=== PATIENT | female | born 1985 ===

== ENCOUNTER 2023-08-08 19:29 | Emergency (ER) | payer OTHER ==
[2023-08-08 19:52] VITALS: TEMP 99.3
[2023-08-08] MEDS ORDERED: TORAdol 30 mg Injection IV ONE (19:52)
[2023-08-08] MEDS ORDERED: Sodium Chloride 0.9% 1000 ML 1,000 ML IV STA (19:52)
[2023-08-08] MEDS ORDERED: Sodium Chloride 0.9% 1000 ML 1,000 ML ONE (19:57)
[2023-08-08] MEDS ORDERED: TORAdol 30 mg Injection ONE (19:57)
--- NOTE | 2023-08-08 20:01 | ERPHSYRPT ---
- History of Present Illness Time Seen by Provider: 08/08/23 19:57 Source: patient Exam Limitations: no limitations Patient Subjective Stated Complaint: left sided abd pain x few days. emesis onset today. multiple episodes emesis today. Triage Nursing Assessment: pt to ED c/o abd pain and NVD. 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 seen at [facility] yesterday, started on abx for ear infection. swabbed for flu and COVID, both negative. decreased oral intake last few days. multiple episodes emesis and diarrhea daily Physician History: Patient is a 38-year-old female BMI 49.6 works at a daycare presents to our ED for evaluation of left-sided flank pain x3 days. Nausea vomiting x1 day. Patient went to a [facility] yesterday. She was feeling unwell. Patient tested negative for COVID flu influenza. However she was diagnosed with an ear infection. Patient currently on amoxicillin. Symptoms are mild to moderate in intensity. No specific worsening or improving factors. No known sick contacts. Patient is otherwise healthy. She voices no other complaints or concerns at this time. Portions of this note were created with voice recognition technology. There may be grammatical, spelling, punctuation or sound alike errors Timing/Duration: day(s) (3 days) Severity: moderate Modifying Factors: Improves With: nothing Associated Symptoms: denies symptoms Allergies/Adverse Reactions: No Known Drug Allergies Allergy (Unverified 08/08/23 19:36) Home Medications: Levothyroxine Sodium 50 Mcg [Synthroid 50 Mcg] 50 mcg PO DAILY 08/08/23 [History] Lisinopril 20 mg [Zestril 20 MG] 20 mg PO DAILY 08/08/23 [History] Tirzepatide [Mounjaro] 12.5 mg SQ DAILY 08/08/23 [History] Hx Tetanus, Diphtheria Vaccination/Date Given: Yes Hx Influenza Vaccination/Date Given: Yes Travel Risk - International Travel Have you traveled outside of the country in past 3 weeks: No - Coronavirus Screening Are you exhibiting any of the following symptoms?: Yes Symptoms: Fever, Cough: New Onset, Shortness of Breath, Vomiting/Diarrhea, Headaches/Body Aches/Fatigue Close contact with a COVID-19 positive Pt in past 14-21 Days: No - Vaccine Status Have you recieved a Covid-19 vaccination: Yes Body Worker: Moderna - Vaccination Dates Date of 2cond Vaccination (if applicable): 2019 - Review of Systems Constitutional: No Symptoms, No Fever, No Chills Eyes: No Symptoms Ears, Nose, & Throat: No Symptoms Respiratory: No Symptoms, No Cough, No Dyspnea Cardiac: No Symptoms, No Chest Pain, No Edema, No Syncope Abdominal/Gastrointestinal: No Symptoms, No Abdominal Pain, No Nausea, No Vomiting, No Diarrhea Genitourinary Symptoms: No Symptoms, No Dysuria Musculoskeletal: No Symptoms, No Back Pain, No Neck Pain Skin: No Symptoms, No Rash Neurological: No Symptoms, No Dizziness, No Focal Weakness, No Sensory Changes Psychological: No Symptoms Endocrine: No Symptoms Hematologic/Lymphatic: No Symptoms Immunological/Allergic: No Symptoms All Other Systems: Reviewed and Negative - Past Medical History Pertinent Past Medical History: Yes Neurological History: No Pertinent History ENT History: No Pertinent History Cardiac History: Hypertension Respiratory History: No Pertinent History Endocrine Medical History: Other Musculoskeletal History: No Pertinent History GI Medical History: No Pertinent History History: No Pertinent History Psycho-Social History: No Pertinent History Female Reproductive Disorders: No Pertinent History Other Medical History: hypothyroidism - Past Surgical History Past Surgical History: Yes Gastrointestinal: Cholecystectomy Female Surgical History: Hysterectomy, Dilation & Curettage, Section Other Surgical History: D&C x4 - Social History Smoking Status: Never smoker Exposure to second hand smoke: No Drug Use: none Patient Lives Alone: No ( and children) - Female History Hx Now: No (hysterectomy) - Nursing Vital Signs Nursing Vital Signs: Initial Vital Signs Temperature 99.3 F 08/08/23 19:38 Pulse Rate 117 H 08/08/23 19:38 Respiratory Rate 20 08/08/23 19:38 Blood Pressure 119/68 08/08/23 19:38 O2 Sat by Pulse Oximetry 98 08/08/23 19:38 Pain Scale Pain Intensity 4 - Physical Exam General Appearance: no apparent distress, alert, obese Eye Exam: PERRL/EOMI, eyes nml inspection Ears, Nose, Throat Exam: normal ENT inspection, TMs normal, pharynx normal, moist mucous membranes Neck Exam: normal inspection, non-tender, supple, full range of motion Respiratory Exam: normal breath sounds, lungs clear, airway intact, No respiratory distress Cardiovascular Exam: regular rate/rhythm, normal heart sounds, normal peripheral pulses Gastrointestinal/Abdomen Exam: soft, normal bowel sounds, tenderness (Tenderness palpation left flank.), No mass Back Exam: normal inspection, normal range of motion, No CVA tenderness, No vertebral tenderness Extremity Exam: normal inspection, normal range of motion, pelvis stable Neurologic Exam: alert, oriented x 3, cooperative, normal mood/affect, nml cerebellar function, nml station & gait, sensation nml, No motor deficits Skin Exam: normal color, warm, dry, No rash Lymphatic Exam: No adenopathy SpO2 Interpretation: normal SpO2: 98 O2 Delivery: Room Air - Course Nursing assessment & vital signs reviewed: Yes - CT Exams Abdomen/Pelvis CT Interpretation: Tele-radiologist Report (No calm 6. Fatty liver, 15 cm splenomegaly, mild colonic diarrhea, remaining abdomen pelvis negative) Ordered Tests: Active Orders 24 hr Category Date Time Status IV Insertion STAT Care 08/08/23 19:52 Active ABDOMEN AND PELVIS W/0 CONTRAS [CT] Stat Exams 08/08/23 19:53 Taken CBC W DIFF Stat Lab 08/08/23 19:55 Completed CMP Stat Lab 08/08/23 19:55 Completed HCG QUALITATIVE, URINE Stat Lab 08/08/23 Ordered LIPASE Stat Lab 08/08/23 19:55 Completed TROPONIN Q4H Lab 08/08/23 19:55 Completed TROPONIN Q4H Lab 08/09/23 00:00 Ordered TROPONIN Q4H Lab 08/09/23 04:00 Ordered UA W/RFX UR CULTURE Stat Lab 08/08/23 19:53 Ordered Medication Summary Discontinued Medications Generic Name Dose Route Start Last Admin Trade Name Tylerq PRN Reason Stop Dose Admin Sodium Chloride 1,000 mls @ 999 mls/hr 08/08/23 19:52 08/08/23 21:51 Sodium Chloride 0.9% 1000 Ml IV 08/08/23 20:52 Infused .Q1H1M STA Infusion Sodium Chloride Confirm 08/08/23 19:57 Sodium Chloride 0.9% 1000 Ml Administered 08/08/23 19:58 Dose 1,000 mls @ ud .ROUTE .STK-MED ONE Ketorolac Tromethamine 30 mg 08/08/23 19:52 08/08/23 20:00 Ketorolac Tromethamine 30 Mg/Ml Inj IV 08/08/23 19:53 30 mg STAT ONE Administration Ketorolac Tromethamine Confirm 08/08/23 19:57 Ketorolac Tromethamine 30 Mg/Ml Inj Administered 08/08/23 19:58 Dose 30 mg .ROUTE .K-MED ONE Lab/Rad Data: Laboratory Result Diagrams 08/08/23 19:55 08/08/23 19:55 Laboratory Results 08/08/23 08/08/23 08/08/23 Range/Units 19:55 19:55 19:55 WBC 8.7 (4.0-10.5) x10^3/uL RBC 5.53 H (4.1-5.4) x10^6/uL Hgb 14.5 (12.0-16.0) g/dL Hct 43.6 (35-47) % MCV 78.8 (78-100) fL MCH 26.2 (26-32) pg MCHC 33.3 (32-36) g/dL RDW 15.2 H (11.5-14.0) % Plt Count 286 (150-450) x10^3/uL MPV 9.4 (7.5-11.0) fL Gran % 79.9 H (36.0-66.0) % Immature Gran % (Auto) 0.3 (0.00-0.4) % Nucleat RBC Rel Count 0.0 (0.00-0.1) % Eos # (Auto) 0 (0-0.5) x10^3/uL Immature Gran # (Auto) 0.03 (0.00-0.03) x10^3u/L Absolute Lymphs (auto) 1.12 (1.0-4.6) x10^3/uL Absolute Monos (auto) 0.58 (0.0-1.3) x10^3/uL Absolute Nucleated RBC 0.00 (0.00-0.01) x10^3u/L Lymphocytes % 12.9 L (24.0-44.0) % Monocytes % 6.7 (0.0-12.0) % Eosinophils % 0.0 (0.00-5.0) % Basophils % 0.2 (0.0-0.4) % Absolute Granulocytes 6.96 H (1.4-6.9) x10^3/uL Basophils # 0.02 (0-0.4) x10^3/uL Sodium 136 L (137-145) mmol/L Potassium 3.5 (3.5-5.1) mmol/L Chloride 102 (98-107) mmol/L Carbon Dioxide 21 L (22-30) mmol/L Anion Gap 15.5 H (5-15) MEQ/L BUN 12 (7-17) mg/dL Creatinine 0.93 (0.52-1.04) mg/dL Estimated GFR 80.2 ML/MIN Glucose 104 (74-106) mg/dL Calcium 8.8 (8.4-10.2) mg/dL Total Bilirubin 0.90 (0.2-1.3) mg/dL AST 38 H (14-36) U/L ALT 32 (0-35) U/L Alkaline Phosphatase 87 (38-126) U/L Troponin I < 0.012 (0.000-0.034) ng/mL Serum Total Protein 8.4 H (6.3-8.2) g/dL Albumin 4.7 (3.5-5.0) g/dL Lipase 52 (23-300) U/L - Progress Progress: improved Progress Note: Patient is a 38-year-old female presents to our ED for evaluation of pain to her left flank. CT abdomen pelvis reveals a fatty liver. Enlarged spleen and diarrhea observed in her colon. CBC essentially nonremarkable. CMP nonremarkable. Lipase negative troponin negative. Patient received Toradol and normal saline. Patient feels well. No complaints. Patient has not urinated. However patient states he is ready for discharge. Patient to follow-up with her primary care doctor within 48 hours for reevaluation. She can provide a urine sample to her primary care doctor they can run urinalysis on an outpatient basis. Portions of this note were created with voice recognition technology. There may be grammatical, spelling, punctuation or sound alike errors Complexity of problems addressed is moderate acute complicated No critical care time Complex of data reviewed and analyzed is moderate. Test ordered test reviewed. Results analyzed and clinically correlated with history and physical examination. Risk of complication and a risk morbidity/mortality of patient management is moderate. A prescription for Toradol was forwarded to patient's pharmacy. Vital stable. Time spent to discharge patient is approximately 15 minutes. Plan of care established for shared decision making. No social determinants of health present impede follow-up. Portions of this note were created with voice recognition technology. There may be grammatical, spelling, punctuation or sound alike errors 08/08/23 21:55 Counseled pt/family regarding: lab results, diagnosis, need for follow-up, rad results - Departure Departure Disposition: Home Clinical Impression: Fatty liver, Splenomegaly, Colonic diarrhea, Abdominal pain Condition: Stable Critical Care Time: No Referrals: ANTIONE CORRAL, [facility] [Primary Care Provider] - Follow up/PCP as directed Additional Instructions: Discharge/Care Plan SANTHOSH CAZARES was seen on 08/08/23 in the Emergency Room. The patient was counseled regarding Diagnosis,Lab results, Imaging studies, need for follow up and when to return to the Emergency Room. Prescriptions given: Discharge Note I have spoken with the patient and/or caregivers. I have explained the patient's condition, diagnosis and treatment plan based on the information available to me at this time. I have answered the patient's and/or caregiver's questions and addressed any concerns. The patient and/or caregivers have as good understanding of the patient's diagnosis, condition and treatment plan as can be expected at this point. The vital signs have been stable. The patient's condition is stable and appropriate for discharge from the emergency department. The patient will pursue further outpatient evaluation with the primary care physician or other designated or consulting physician as outlined in the discharge instructions. The patient and/or caregivers are agreeable to this plan of care and follow-up instructions have been explained in detail. The patient and/or caregivers have received these instruction. The patient/and or caregivers are aware that any significant change in condition or worsening of symptoms should prompt an immediate return to this or the closest emergency department or call 911.
[2023-08-08 20:07] LABS: Absolute Neutrophil Ct (ANC) 6.96 x10^3/uL (1.4-6.9); BASOPHIL % 0.2 % (0.0-0.4); Basophil (Absolute #) 0.02 x10^3/uL (0-0.4); Eosinophil (Absolute #) 0 x10^3/uL (0-0.5); Hematocrit 43.6 % (35-47); Hemoglobin 14.5 g/dL (12.0-16.0); IMMATURE GRAN # 0.03 x10^3u/L (0.00-0.03); IMMATURE GRAN % 0.3 % (0.00-0.4); Lymphocyte (Absolute #) 1.12 x10^3/uL (1.0-4.6); Lymphocytes % 12.9 % (24.0-44.0); Mean Cell Volume 78.8 fL (78-100); Mean Corpuscular Hemoglobin 26.2 pg (26-32); Mean Corpuscular Hgb Concent. 33.3 g/dL (32-36); Mean Platelet Volume 9.4 fL (7.5-11.0); Monocyte (Absolute #) 0.58 x10^3/uL (0.0-1.3); Monocytes % 6.7 % (0.0-12.0); Neutrophil % 79.9 % (36.0-66.0); Platelet Count 286 x10^3/uL (150-450); Red Blood Count 5.53 x10^6/uL (4.1-5.4); Red Cell Distribution Width 15.2 % (11.5-14.0); White Blood Count 8.7 x10^3/uL (4.0-10.5)
[2023-08-08 20:20] LABS: ALBUMIN 4.7 g/dL (3.5-5.0); ANION GAP 15.5 MEQ/L (5-15); BILIRUBIN,TOTAL 0.9 mg/dL (0.2-1.3); Calcium 8.8 mg/dL (8.4-10.2); Creatinine 1 0.93 mg/dL (0.52-1.04); EST GLOMERULAR FILTRATION RATE 80.2 ML/MIN; Potassium 3.5 mmol/L (3.5-5.1); Total Protein 8.4 g/dL (6.3-8.2)
[2023-08-08 20:36] VITALS: RESP 18
[2023-08-08 21:54] VITALS: BP 104/67; PULSE 92
[2023-08-08 21:58] VITALS: O2SAT 98
--- NOTE | 2023-08-09 08:38 | XRAY ---
Indication: Pain. Nausea, vomiting, diarrhea. Multiple contiguous axial images obtained through the abdomen and pelvis without contrast. Comparison: None Lung bases demonstrate minimal dependent atelectasis and tiny left base calcified granuloma. Heart not enlarged. Noncontrasted stomach and bowel loops appear nonobstructed with normal-appearing appendix. Mild fluid distended colon throughout with fluid leveling favoring diarrhea. Diffuse fatty liver, 15 cm splenomegaly, and splenic calcified granuloma. Previous cholecystectomy. No free fluid/air. Remaining liver, pancreas, spleen, adrenal glands, kidneys, ureters, bladder, and aorta are unremarkable for noncontrast exam. Osseous structures intact with minimal degenerative changes throughout the spine and mild dextroscoliosis centered at T12. Impression: 1. Colonic diarrhea, fatty liver, splenomegaly, chronic bony findings, and old granulomatous disease. 2. Remaining CT abdomen/pelvis without contrast exam is negative.
== END 2023-08-08 22:19 | disposition home or self-care (01) ==
LOC: ED 19:29
DX: K76.0 Fatty (change of) liver, not elsewhere classified (principal); R16.1 Splenomegaly, not elsewhere classified; R19.7 Diarrhea, unspecified; R10.9 Unspecified abdominal pain; R11.2 Nausea with vomiting, unspecified; I10 Essential (primary) hypertension; Z79.85 Long-term (current) use of injectable non-insulin antidiabetic drugs; Z79.899 Other long term (current) drug therapy
CPT/HCPCS: 36000; 36415; 74176; 80053; 83690; 84484; 85025; 96360; 96374; 99284; J1885